=== PATIENT | female | born 1950 | race Caucasian/White ===

== ENCOUNTER 2021-08-04 13:52 | Outpatient (CLI) | payer BC, MEDICARE | END 2021-08-04 13:53 | disposition home or self-care (01) | LOC: CSHULT 13:52 | PROVIDERS: ATTEND Family Medicine | DX: R47.01 Aphasia (principal); I65.29 Occlusion and stenosis of unspecified carotid artery; I11.9 Hypertensive heart disease without heart failure | CPT/HCPCS: 70551; 93306; 93880 ==

== ENCOUNTER 2024-06-12 15:32 | Outpatient (CLI) | payer MEDICARE, BC | END 2024-06-12 15:33 | disposition home or self-care (01) | LOC: CSHULT 15:32 | PROVIDERS: ATTEND Family Medicine | DX: M79.672 Pain in left foot (principal); R60.0 Localized edema ==

== ENCOUNTER 2025-04-06 20:27 | Emergency (ER) | payer MEDICARE, BC ==
[2025-04-06] MEDS ORDERED: Ondansetron PF 4 MG/2 ML Vial ONE (22:01)
[2025-04-06 22:19] LABS: #Basophils 0.03 10x3/uL (0.0-0.2); #Eosinophils 0.03 10x3/uL (0.0-0.5); #Monocytes 0.35 10x3/uL (0.0-1.1); #Neutrophils 3.58 10x3/uL (1.5-8.4); %Basophils 0.6 % (0.0-2.0); %Eosinophils 0.6 % (0.0-6.0); %Lymphocytes 12.6 % (18.0-47.0); %Monocytes 7.6 % (0.0-10.0); %Neutrophils 77.5 % (40.0-75.0); Hematocrit 30.5 % (34.9-44.5); Hemoglobin 10.5 g/dL (12.0-15.5); Mean Corpuscular Hemoglobin 27.1 pg (27.0-33.0); Mean Corpuscular Volume 78.8 fL (81.6-98.3); Platelet Count 189 10x3/uL (150-450); Red Blood Cell (RBC) Count 3.87 10x6/uL (3.90-5.03); White Blood Cell (WBC) Count 4.62 10x3/uL (3.5-10.5)
[2025-04-06] MEDS ORDERED: diphenhydrAMINE 50 MG/ML VIAL ONE (22:27)
[2025-04-06] MEDS ORDERED: Prochlorperazine 10 MG/2 ML VIAL ONE (22:28)
[2025-04-06] MEDS ORDERED: Ketorolac Tromethamine 30 MG (1 mL) VIAL ONE (22:28)
[2025-04-06 22:36] LABS: Anion Gap 19 mmol/L (10-20); Chloride 100 mmol/L (98-107); Globulin 3.5 g/dL (2.4-3.5); Sodium 140 mmol/L (136-145)
[2025-04-06 22:38] LABS: Troponin I 0.020 ng/mL (< 0.028)
[2025-04-06 22:51] LABS: ALT (SGPT) 18 U/L (Less than 34); AST (SGOT) 33 U/L (11-34); Albumin 3.7 g/dL (3.1-4.5); Alkaline Phosphatase 54 U/L (40-110); BUN (Urea Nitrogen) 10 mg/dL (9.8-20.1); Bilirubin, Total 0.8 mg/dL (0.3-1.2); Calc. Creatinine Clearance 0 mL/min (70-130); Calcium 7.4 mg/dL (7.8-10.44); Carbon Dioxide 23 mmol/L (23-31); Glucose 116 mg/dL (83-110); Lipase 58 U/L (8-78)
[2025-04-06 23:01] LABS: Potassium 2.6 mmol/L (3.5-5.1)
[2025-04-06 23:05] LABS: Glucose, Urine (Dipstick) Normal (Negative); Leukocyte Negative (Negative); Protein, Urine (Dipstick) 15 mg/dl (Neg-Trace); Specific Gravity, Urine 1.005 (1.005-1.030)
[2025-04-06 23:12] LABS: Bacteria/HPF None Seen HPF (None Seen); CAUTI Indications for Culture Pelvic or flank pain; RBC/HPF None Seen HPF (0-3); WBC/HPF 0-3 HPF (0-3)
[2025-04-06 23:13] LABS: Urine Culture Reflex No No
[2025-04-06] MEDS ORDERED: Famotidine/PF 20 mg/2ml Vial ONE (23:47)
[2025-04-06] MEDS ORDERED: Magnesium 2 GM/50 ML BAG (IN WATER) ONE (23:47)
== END 2025-04-07 02:33 | disposition home or self-care (01) ==
LOC: CSHERS 20:27
DX: G89.18 Other acute postprocedural pain (principal); R10.10 Upper abdominal pain, unspecified; E86.0 Dehydration; E87.6 Hypokalemia; I10 Essential (primary) hypertension; Z90.49 Acquired absence of other specified parts of digestive tract
CPT/HCPCS: 71250; 74177; 80053; 81001; 83605; 83690; 83880; 84484; 85025; 93005; J0780; J1200; J1885; J3475; 96374; 96375